=== PATIENT | male | born 1985 | race American Indian/Alaskan Native ===

== ENCOUNTER 2016-10-01 13:01 | Emergency (ER) | payer SELFPAY ==
[2016-10-01 13:23] VITALS: BP 124/90
[2016-10-01] MEDS ORDERED: XYLOCAINE 1% 20 mL ONE (13:41)
[2016-10-01 14:11] LABS: Basophils % (Auto) 0.5 % (0.0-1.8); Eosinophils % (Auto) 1.9 % (0.0-4.3); Hemoglobin 12.8 gm/dl (11.8-15.2); Mean Corpuscular HGB Conc 32 % (32-34); Mean Corpuscular Hemoglobin 28 pg (28-32); Mean Corpuscular Volume 87 fl (84-94); Platelet Count 265 K/mm3 (140-440); Red Blood Count 4.59 M/mm3 (3.65-5.03); Red Cell Distribution Width 13.8 % (13.2-15.2); White Blood Count 7.2 K/mm3 (4.5-11.0)
[2016-10-01 14:18] LABS: Anion Gap 17 mmol/L; BUN/Creatinine Ratio 14.54; Blood Urea Nitrogen 16 mg/dL (9-20); Calcium 9.6 mg/dL (8.4-10.2); Carbon Dioxide 25 mmol/L (22-30); Chloride 101.7 mmol/L (98-107); Glucose 98 mg/dL (75-100); Potassium 4.6 mmol/L (3.6-5.0); Sodium 139 mmol/L (137-145)
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
[2016-10-01] MEDS ORDERED: BOOSTRIX IM ONE (14:37)
== END 2016-10-01 15:26 | disposition home or self-care (01) ==
LOC: ED 13:01
DX: S30.853A Superficial foreign body of scrotum and testes, initial encounter (principal); F32.9 Major depressive disorder, single episode, unspecified; F12.10 Cannabis abuse, uncomplicated; X58.XXXA Exposure to other specified factors, initial encounter; Y93.9 Activity, unspecified; Y92.9 Unspecified place or not applicable; Y99.9 Unspecified external cause status
CPT/HCPCS: 10120; 36415; 80048; 85025; 90471; 90715; 99283; G0480; 80320